=== PATIENT | male | born 1970 | race Caucasian/White ===

== ENCOUNTER 2023-01-27 15:57 | Emergency (ER) | payer SELFPAY ==
[2023-01-27 15:58] VITALS: BP 149/80; PULSE 90; RESP 20; O2SAT 89; BMI 27.8
--- NOTE | 2023-01-27 16:07 | XRR_ITS ---
PROCEDURE INFORMATION: Exam: XR Chest Exam date and time: 01/27/2023 4:11 PM Age: 52 years old Clinical indication: Shortness of breath; Additional info: SOB TECHNIQUE: Imaging protocol: Radiologic exam of the chest. Views: 1 view. COMPARISON: CR XR chest 1V [id number] 10/28/2016 5:52 PM FINDINGS: Lungs: Unremarkable. No consolidation. Pleural spaces: Unremarkable. No pleural effusion. No pneumothorax. Heart/Mediastinum: Unremarkable. No cardiomegaly. Bones/joints: Metallic sternotomy wires are present XR/XR chest 1V portable [id number] IMPRESSION: 1. No acute findings. 2. Metallic sternotomy wires are present.
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
[2023-01-27] MEDS: tetanus-dipt-pertussis 0.5 mL SDV IM (16:22)
[2023-01-27 16:59] VITALS: RESP 18
[2023-01-27] MEDS: HYDROmorphone 1 mg/mL INJ 1 mL IVP (16:59)
== END 2023-01-27 17:57 | disposition short-term general hospital (02) ==
PROVIDERS: Emergency Provider Emergency Medicine
DX: T24.202A Burn of second degree of unspecified site of left lower limb, except ankle and foot, initial encounter (principal); T24.201A Burn of second degree of unspecified site of right lower limb, except ankle and foot, initial encounter; X08.8XXA Exposure to other specified smoke, fire and flames, initial encounter; Y93.89 Activity, other specified; Y92.9 Unspecified place or not applicable
CPT/HCPCS: 71045; 90471; 90715; 96374; 99284; J1170